=== PATIENT | male | born 1985 | race Two or more races ===

== ENCOUNTER 2018-10-11 17:19 | Inpatient (IN) | payer OTHER ==
[2018-10-11 19:07] VITALS: BMI 20.5
--- NOTE | 2018-10-11 21:45 | HP ---
CIWA Score Nausea/Vomitin-No Nausea/No Vomiting Muscle Tremors: None Anxiety: 0-No Anxiety, at Ease Agitation: 0-Normal Activity Paroxysmal Sweats: No Perspiration Orientation: 2-Disoriented Date<2 days Tacttile Disturbances: 2-Mild Itch/Numbness/Burn Auditory Disturbances: 0-None Visual Disturbances: 3-Moderate Sensitivity Headache: 0-None Present CIWA-Ar Total Score: 7 - Admission Criteria OASAS Guidelines: Admission for Medically Managed Detox: Requires at least one of the followin. CIWA greater than 12 2. Seizures within the past 24 hours 3. Delirium tremens within the past 24 hours 4. Hallucinations within the past 24 hours 5. Acute intervention needed for co occurring medical disorder 6. Acute intervention needed for co occurring psychiatric disorder 7. Severe withdrawal that cannot be handled at a lower level of care (continued vomiting, continued diarrhea, abnormal vital signs) requiring intravenous medication and/or fluids 8. Patient presents the following: Acute intervention needed for co-occurring med or psych disorder Admission Criteria Met: Admission criteria met Admission ROS [facility] Chief Complaint: seeking detox for alcoholism Allergies/Adverse Reactions: Allergies Allergy/AdvReac Type Severity Reaction Status Date / Time shellfish derived Allergy Verified 10/11/18 18:56 History of Present Illness: 33 y.o. male with alcoholism here for detox. client presents with intoxication and some withdrawal sx's. he is referred by his sro. this is his first admission here. states this is his first time inpatient. 2 years clean time reported, relapsing 1 year ago. denies hx/o seizures, + black outs. domiciled, unemployed, denies pmhx- asthma, hiv psych- bipolar- non complaint with meds. last taken 2 weeks ago Exam Limitations: Intoxication - Ebola screening Have you traveled outside of the country in the last 21 days: No (N) Have you had contact with anyone from an Ebola affected area: No Do you have a fever: No - Review of Systems Constitutional: Changes in sleep EENT: reports: No Symptoms Reported Respiratory: reports: Shortness of Breath (intermittent), Other (hx/o asthma) Cardiac: reports: No Symptoms Reported GI: reports: Poor Fluid Intake : reports: No Symptoms Reported Musculoskeletal: reports: No Symptoms Reported Integumentary: reports: Rash (eczema) Neuro: reports: No Symptoms reported Endocrine: reports: No Symptoms Reported Hematology: reports: Anemia Psychiatric: reports: Agitated (irritable), Depressed (denies si) Other Systems: Reviewed and Negative Patient History - Patient Medical History Hx Anemia: Yes Hx Asthma: Yes Hx Chronic Obstructive Pulmonary Disease (COPD): No Hx Cancer: No Hx Cardiac Disorders: No Hx Congestive Heart Failure: No Hx Hypertension: No Hx Hypercholesterolemia: No Hx Pacemaker: No HX Cerebrovascular Accident: No Hx Seizures: No Hx Dementia: No Hx Diabetes: No Hx Gastrointestinal Disorders: No Hx Liver Disease: No Hx Genitourinary Disorders: No Hx Sexually Transmitted Disorders: No Hx Renal Disease (ESRD): No Hx Thyroid Disease: No Hx Human Immunodeficiency Virus (HIV): Yes ([id number]) Hx Hepatitis C: No Hx Depression: No Hx Suicide Attempt: No Hx Bipolar Disorder: Yes Hx Schizophrenia: No Other Medical History: denies - Patient Surgical History Past Surgical History: Yes Other Surgical History: r testicle, oral sx Anesthesia Reaction: No - PPD History Previous Implant?: Yes Documented Results: Negative w/proof Implanted On Prior R Admission?: No PPD to be Administered?: Yes - Smoking Cessation Smoking history: Current every day smoker Have you smoked in the past 12 months: Yes Aproximately how many cigarettes per day: 6 Cigars Per Day: 0 Hx Chewing Tobacco Use: No Initiated information on smoking cessation: Yes 'Breaking Loose' booklet given: 10/11/18 - Substance & Tx. History Hx Alcohol Use: Yes Substance Use Type: None, Alcohol Hx Substance Use Treatment: No - Substances abused Alcohol Substance route: Oral Frequency: 3-6 times per week Amount used: 1 liter of vodka,2 32oz beers on weekends,fri/sat/sun/mon Age of first use: 16 Date of last use: 10/11/18 Family Disease History - Family Disease History Family History: Denies Admission Physical Exam BHS - Vital Signs Vital Signs: Vital Signs - 24 hr 10/11/18 10/11/18 18:56 19:20 Temperature 98.1 F 98.1 F Pulse Rate 93 H 93 H Respiratory 18 18 Rate Blood Pressure 103/67 103/67 - Physical General Appearance: Yes: Mild Distress, Alcohol on Breath, Intoxicated, Irritable HEENTM: Yes: EOMI, Normocephalic, Normal Voice, JUICE, Pharynx Normal Respiratory: Yes: Chest Non-Tender, Lungs Clear, Normal Breath Sounds, No Respiratory Distress Neck: Yes: No masses,lesions,Nodules, Supple, Trachea in good position Breast: Yes: Breast Exam Deferred Cardiology: Yes: Regular Rhythm, Regular Rate, S1, S2 Abdominal: Yes: Non Tender, Flat, Soft, Increased Bowel Sounds Genitourinary: Yes: Within Normal Limits Back: Yes: Normal Inspection Musculoskeletal: Yes: full range of Motion, Gait Steady Extremities: Yes: Normal Capillary Refill, Normal Range of Motion, Non-Tender Neurological: Yes: Fully Oriented, Alert, Motor Strength 5/5, Depressed Affect Integumentary: Yes: Dry, Warm, Other (dirty unkept feet/heels) Lymphatic: Yes: Within Normal Limits - Diagnostic (1) Asthma Current Visit: Yes Status: Chronic Qualifiers: Asthma persistence: intermittent Asthma complication type: unspecified (2) Bipolar 1 disorder, depressed Current Visit: Yes Status: Chronic (3) Nicotine dependence Current Visit: Yes Status: Chronic Qualifiers: Nicotine product type: cigarettes Substance use status: uncomplicated Qualified Code(s): F17.210 - Nicotine dependence, cigarettes, uncomplicated (4) Alcohol intoxication Current Visit: Yes Status: Acute Qualifiers: Complication of substance-induced condition: uncomplicated Qualified Code(s ): F10.920 - Alcohol use, unspecified with intoxication, uncomplicated (5) Alcohol dependence with uncomplicated withdrawal Current Visit: Yes Status: Acute (6) Eczema Current Visit: Yes Status: Chronic (7) Alcohol consumption binge drinking Current Visit: Yes Status: Acute Cleared for Admission S - Detox or Rehab [facility] Level of Care: Medically Managed Detox Regimen/Protocol: [place] Clae[place] for Rehab Admission: No Breathalyzer - Breathalyzer Breathalyzer: 0.236 Urine Drug Screen - Test Device Lot number: [id number] Expiration date: 07/20/20 - Control Is test valid?: Yes - Results Drug screen NEGATIVE: Yes Inpatient Rehab Admission - Rehab Decision to Admit Inpatient rehab admission?: No
[2018-10-11] MEDS ORDERED: ALBUTEROL SO4 8 GM HFA INHALER IH PRN (21:51)
[2018-10-11] MEDS ORDERED: DICYCLOMINE HCL 10 MG CAPSULE PO PRN (21:52)
[2018-10-11] MEDS ORDERED: METHOCARBAMOL 500 MG TABLET PO PRN (21:52)
[2018-10-11] MEDS ORDERED: guaiFENesin 200 MG/10 ML 10 ML UNIT-DOSE CUPS PO PRN (21:52)
[2018-10-11] MEDS ORDERED: MAG HYDROX/AL HYDROX/SIMETH 30 ML UNIT-DOSE CUP PO PRN (21:52)
[2018-10-11] MEDS ORDERED: MENTHOL/PHENOL 1 EACH UD MM PRN (21:52)
[2018-10-11] MEDS ORDERED: ONDANSETRON *ODT* 4 MG TABLET SL PRN (21:52)
[2018-10-11] MEDS ORDERED: BISMUTH SUBSALICYLATE 524 MG/30 ML UD PO PRN (21:52)
[2018-10-11] MEDS ORDERED: MAGNESIUM CITRATE 300 ML BOTTLE PO PRN (21:52)
[2018-10-11] MEDS ORDERED: IBUPROFEN 400 MG TABLET (FP) PO PRN (21:52)
[2018-10-11] MEDS ORDERED: ACETAMINOPHEN 325 MG TABLET (FP) PO PRN ×2 (21:52)
[2018-10-11] MEDS ORDERED: hydrOXYzine PAMOATE 25 MG CAPSULE (FP) PO PRN (21:52)
[2018-10-11] MEDS ORDERED: MAGNESIUM HYDROX 2400MG/30ML ORAL SUSPENSION 30 ML CUP PO PRN (21:52)
[2018-10-11] MEDS ORDERED: P-EPHED 60MG/TRIPROLIDI 2.5MG TABLET PO PRN (21:52)
[2018-10-11] MEDS ORDERED: chlordiazePOXIDE HCL 10 MG CAPSULE PO PRN (21:52)
[2018-10-11] MEDS: THIAMINE HCL 100 MG TABLET (FP) PO SCH (23:38)
[2018-10-11] MEDS: chlordiazePOXIDE HCL 25 MG CAPSULE PO SCH (23:38)
[2018-10-12] MEDS: NICOTINE POLACRILEX 2 MG GUM BUC PRN ×6 (04:26→22:14)
[2018-10-12] MEDS: chlordiazePOXIDE HCL 25 MG CAPSULE PO SCH ×3 (05:05→22:11)
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
--- NOTE | 2018-10-12 10:02 | PN ---
BHS CIWA - CIWA Score Nausea/Vomitin Muscle Tremors: 2 Anxiety: 2 Agitation: 2 Paroxysmal Sweats: 1-Minimal Palms Moist Orientation: 0-Oriented Tacttile Disturbances: 1-Very Mild Itch/Numbness Auditory Disturbances: 1-Very Mild Visual Disturbances: 0-None Headache: 2-Mild CIWA-Ar Total Score: 13 BHS Progress Note (SOAP) Subjective: alert,irritable,anxious,interrupted sleep,tremor Objective: 10/12/18 10:01 Vital Signs Temperature 98.2 F 10/12/18 09:44 Pulse Rate 68 10/12/18 09:44 Respiratory Rate 18 10/12/18 09:44 Blood Pressure 130/86 10/12/18 09:44 O2 Sat by Pulse Oximetry (%) 10/12/18 10:02 labs pending Assessment: 10/12/18 10:02 withdrawal symptom Plan: continue detox,librium regimen
[2018-10-12] MEDS: ABACAVIR/DOLUTEGRAVIR/LAMIVUDI (TRIUMEQ) TABLET -NF PO SCH (10:14)
[2018-10-12] MEDS: SERTRALINE HCL 50 MG TABLET (FP) PO SCH (10:14)
[2018-10-12] MEDS: PRENATAL VITAMINS W/ FOLIC ACID TABLET (FP) PO SCH (10:14)
[2018-10-12] MEDS: NICOTINE 14 MG/24 HOURS TOPICAL PATCH TD SCH (10:14)
[2018-10-12 12:02] LABS: ALBUMIN 3.5 g/dl (3.4-5.0); BILIRUBIN,TOTAL 0.3 mg/dL (0.2-1); BLOOD UREA NITROGEN 7.8 mg/dL (7-18); CALCIUM 8.4 mg/dL (8.5-10.1); CREATININE 0.7 mg/dL (0.55-1.3); POTASSIUM 3.4 mmol/L (3.5-5.1); TOT PROT 7.4 g/dl (6.4-8.2)
[2018-10-12 12:21] LABS: HEMATOCRIT 36.3 % (35.4-49); HEMOGLOBIN 12.2 GM/dL (11.7-16.9); MCH 33.7 pg (25.7-33.7); MCHC 33.7 g/dl (32.0-35.9); MEAN PLT VOLUME 9.4 fl (7.5-11.1); PLATELET COUNT 150 K/MM3 (134-434); RBC 3.63 M/mm3 (4.00-5.60); RDW 16.2 % (11.9-15.9); WHITE BLOOD COUNT 4.6 K/mm3 (4.0-10.0)
--- NOTE | 2018-10-12 13:43 | EKG ---
Test Reason : Blood Pressure : / mmHG Vent. Rate : 078 BPM Atrial Rate : 078 BPM P-R Int : 128 ms QRS Dur : 088 ms QT Int : 388 ms P-R-T Axes : 063 054 061 degrees QTc Int : 442 ms NORMAL SINUS RHYTHM NORMAL ECG NO PREVIOUS ECGS AVAILABLE Confirmed by Juan Luis Love MD ([id number]) on 10/12/2018 1:42:32 PM Referred By: Confirmed By:Juan Luis Love MD
[2018-10-12 14:54] LABS: PH,URINE 5.5 (5.0-8.0); URINE APPEARANCE CLEAR; URINE BILIRUBIN NEGATIVE (NEGATIVE); URINE COLOR DK YELLOW; URINE GLUCOSE (UA) NEGATIVE (NEGATIVE); URINE KETONE TRACE (NEGATIVE); URINE LEUK ESTERASE NEGATIVE (NEGATIVE); URINE NITRITE NEGATIVE (NEGATIVE); URINE PROTEIN TRACE (NEGATIVE)
[2018-10-12] MEDS: THIAMINE HCL 100 MG TABLET (FP) PO SCH (22:11)
[2018-10-12] MEDS: MELATONIN 5 MG TABLETS PO PRN (23:13)
[2018-10-13] MEDS: chlordiazePOXIDE 5 MG CAPSULE PO SCH ×3 (05:46→21:32)
[2018-10-13] MEDS: NICOTINE POLACRILEX 2 MG GUM BUC PRN ×5 (05:51→23:32)
[2018-10-13] MEDS: PRENATAL VITAMINS W/ FOLIC ACID TABLET (FP) PO SCH (10:01)
[2018-10-13] MEDS: SERTRALINE HCL 50 MG TABLET (FP) PO SCH (10:01)
[2018-10-13] MEDS: SULFAMETHOXAZOLE/TRIMETHOPRIM 800MG/160MG D.S. TABLET PO SCH (10:01)
[2018-10-13] MEDS: ABACAVIR/DOLUTEGRAVIR/LAMIVUDI (TRIUMEQ) TABLET -NF PO SCH (10:01)
[2018-10-13] MEDS: NICOTINE 14 MG/24 HOURS TOPICAL PATCH TD SCH (10:02)
[2018-10-13] MEDS ORDERED: POTASSIUM CHLORIDE TABS 20 MEQ TABLET.ER (FP) PO ONE (14:00)
--- NOTE | 2018-10-13 16:30 | PN ---
S CIWA - CIWA Score Nausea/Vomitin-Mild Nausea/No Vomiting Muscle Tremors: 2 Anxiety: 3 Agitation: 2 Paroxysmal Sweats: 2 Orientation: 0-Oriented Tacttile Disturbances: 0-None Auditory Disturbances: 0-None Visual Disturbances: 0-None Headache: 2-Mild CIWA-Ar Total Score: 12 BHS Progress Note (SOAP) Subjective: pt states he has a court date on Thursday and would like to leave early. O: Vital Signs - 24 hr 10/12/18 10/12/18 10/12/18 16:30 17:00 17:30 Temperature Pulse Rate 74 78 66 Respiratory 20 20 20 Rate Blood Pressure 10/12/18 10/12/18 10/12/18 17:54 18:00 18:30 Temperature 98.2 F Pulse Rate 68 69 70 Respiratory 20 20 20 Rate Blood Pressure 128/89 10/12/18 10/12/18 10/12/18 19:00 19:30 20:00 Temperature Pulse Rate 78 69 74 Respiratory 20 18 18 Rate Blood Pressure 10/12/18 10/12/18 10/12/18 20:24 20:30 21:00 Temperature 98.1 F Pulse Rate 70 70 58 L Respiratory 18 18 18 Rate Blood Pressure 123/80 10/12/18 10/12/18 10/12/18 21:30 22:00 22:30 Temperature Pulse Rate 64 69 72 Respiratory 18 18 18 Rate Blood Pressure 10/12/18 10/12/18 10/13/18 23:00 23:30 00:30 Temperature Pulse Rate 70 78 Respiratory 18 18 18 Rate Blood Pressure 10/13/18 10/13/18 10/13/18 03:30 06:21 09:16 Temperature 97.7 F 97.5 F L Pulse Rate 66 63 Respiratory 18 18 17 Rate Blood Pressure 135/91 110/65 10/13/18 13:40 Temperature 100.6 F H Pulse Rate 68 Respiratory 18 Rate Blood Pressure 127/87 Laboratory Tests 10/12/18 10/12/18 10/12/18 07:00 07:00 07:00 WBC 4.6 RBC 3.63 L Hgb 12.2 Hct 36.3 MCV 100.0 H MCH 33.7 MCHC 33.7 RDW 16.2 H Plt Count 150 MPV 9.4 Sodium 136 Potassium 3.4 L Chloride 98 Carbon Dioxide 32 Anion Gap 7 L BUN 7.8 Creatinine 0.7 Est GFR (CKD-EPI)AfAm 144.72 Est GFR (CKD-EPI)NonAf 124.87 Random Glucose 109 H Calcium 8.4 L Total Bilirubin 0.3 AST 45 H ALT 28 Alkaline Phosphatase 58 Total Protein 7.4 Albumin 3.5 Urine Color Urine Appearance Urine pH Ur Specific [place] Urine Protein Urine Glucose (UA) Urine Ketones Urine Blood Urine Nitrite Urine Bilirubin Urine Urobilinogen Ur Leukocyte Esterase RPR Titer Nonreactive 10/12/18 09:20 WBC RBC Hgb Hct MCV MCH MCHC RDW Plt Count MPV Sodium Potassium Chloride Carbon Dioxide Anion Gap BUN Creatinine Est GFR (CKD-EPI)AfAm Est GFR (CKD-EPI)NonAf Random Glucose Calcium Total Bilirubin AST ALT Alkaline Phosphatase Total Protein Albumin Urine Color Dk yellow Urine Appearance Clear Urine pH 5.5 Ur Specific [place] 1.033 Urine Protein Trace Urine Glucose (UA) Negative Urine Ketones Trace H Urine Blood Negative Urine Nitrite Negative Urine Bilirubin Negative Urine Urobilinogen 1.0 Ur Leukocyte Esterase Negative RPR Titer low potassium mild fever, without sx a/p: continue detox protocol- potassium repletion follow temp- no other Sx at the present moment
[2018-10-13] MEDS: THIAMINE HCL 100 MG TABLET (FP) PO SCH (21:33)
[2018-10-13] MEDS: MELATONIN 5 MG TABLETS PO PRN (23:32)
[2018-10-14] MEDS ORDERED: chlordiazePOXIDE HCL 10 MG CAPSULE PO PRN
[2018-10-14] MEDS ORDERED: chlordiazePOXIDE HCL 10 MG CAPSULE PO SCH (05:00)
[2018-10-14] MEDS: NICOTINE POLACRILEX 2 MG GUM BUC PRN ×3 (05:09→10:22)
[2018-10-14 09:24] VITALS: BP 111/82; PULSE 82; TEMP 98.1
[2018-10-14] MEDS ORDERED: POTASSIUM CHLORIDE TABS 20 MEQ TABLET.ER (FP) PO SCH (10:00)
[2018-10-14] MEDS: NICOTINE 14 MG/24 HOURS TOPICAL PATCH TD SCH (10:19)
[2018-10-14] MEDS: SERTRALINE HCL 50 MG TABLET (FP) PO SCH (10:19)
[2018-10-14] MEDS: SULFAMETHOXAZOLE/TRIMETHOPRIM 800MG/160MG D.S. TABLET PO SCH (10:19)
[2018-10-14] MEDS: PRENATAL VITAMINS W/ FOLIC ACID TABLET (FP) PO SCH (10:20)
[2018-10-14] MEDS: ABACAVIR/DOLUTEGRAVIR/LAMIVUDI (TRIUMEQ) TABLET -NF PO SCH (10:20)
--- NOTE | 2018-10-14 12:25 | PN ---
S CIWA - CIWA Score Nausea/Vomitin-No Nausea/No Vomiting Muscle Tremors: 1-None Visible, but [place] Anxiety: 1-Mildly Anxious Agitation: 1-Slight > Activity Paroxysmal Sweats: No Perspiration Orientation: 0-Oriented Tacttile Disturbances: 0-None Auditory Disturbances: 0-None Visual Disturbances: 0-None Headache: 1-Very Mild CIWA-Ar Total Score: 4 BHS Progress Note (SOAP) Subjective: alert,no complaint,feeling well Objective: 10/14/18 12:23 Vital Signs Temperature 98.1 F 10/14/18 09:24 Pulse Rate 82 10/14/18 09:24 Respiratory Rate 18 10/14/18 09:24 Blood Pressure 111/82 10/14/18 09:24 O2 Sat by Pulse Oximetry (%) Assessment: 10/14/18 12:23 no withdrawal symptom Plan: stable for discharge today,follow up with after care program as arrangement
--- NOTE | 2018-10-14 12:29 | DS ---
[facility] Detox Discharge Summary Admission Date: 10/11/18 Discharge Date: 10/14/18 - History Present History: Alcohol Dependence Additional Comments: stable for discharge today,follow up with after care program as arrangement and medical provider for medical problem Pertinent Past History: asthma eczema hiv bipolar disorder - Physical Exam Results Vital Signs: Vital Signs Temperature 98.1 F 10/14/18 09:24 Pulse Rate 82 10/14/18 09:24 Respiratory Rate 18 10/14/18 09:24 Blood Pressure 111/82 10/14/18 09:24 O2 Sat by Pulse Oximetry (%) Pertinent Admission Physical Exam Findings: withdrawal sign and symptom Laboratory Last Values WBC 4.6 K/mm3 (4.0-10.0) 10/12/18 07:00 RBC 3.63 M/mm3 (4.00-5.60) L 10/12/18 07:00 Hgb 12.2 GM/dL (11.7-16.9) 10/12/18 07:00 Hct 36.3 % (35.4-49) 10/12/18 07:00 MCV 100.0 fl (80-96) H 10/12/18 07:00 MCH 33.7 pg (25.7-33.7) 10/12/18 07:00 MCHC 33.7 g/dl (32.0-35.9) 10/12/18 07:00 RDW 16.2 % (11.9-15.9) H 10/12/18 07:00 Plt Count 150 K/MM3 (134-434) 10/12/18 07:00 MPV 9.4 fl (7.5-11.1) 10/12/18 07:00 Sodium 136 mmol/L (136-145) 10/12/18 07:00 Potassium 3.4 mmol/L (3.5-5.1) L 10/12/18 07:00 Chloride 98 mmol/L (98-107) 10/12/18 07:00 Carbon Dioxide 32 mmol/L (21-32) 10/12/18 07:00 Anion Gap 7 MMOL/L (8-16) L 10/12/18 07:00 BUN 7.8 mg/dL (7-18) 10/12/18 07:00 Creatinine 0.7 mg/dL (0.55-1.3) 10/12/18 07:00 Est GFR (CKD-EPI)AfAm 144.72 10/12/18 07:00 Est GFR (CKD-EPI)NonAf 124.87 10/12/18 07:00 Random Glucose 109 mg/dL (74-106) H 10/12/18 07:00 Calcium 8.4 mg/dL (8.5-10.1) L 10/12/18 07:00 Total Bilirubin 0.3 mg/dL (0.2-1) 10/12/18 07:00 AST 45 U/L (15-37) H 10/12/18 07:00 ALT 28 U/L (13-61) 10/12/18 07:00 Alkaline Phosphatase 58 U/L (45-117) 10/12/18 07:00 Total Protein 7.4 g/dl (6.4-8.2) 10/12/18 07:00 Albumin 3.5 g/dl (3.4-5.0) 10/12/18 07:00 Urine Color Dk yellow 10/12/18 09:20 Urine Appearance Clear 10/12/18 09:20 Urine pH 5.5 (5.0-8.0) 10/12/18 09:20 Ur Specific [place] 1.033 (1.010-1.035) 10/12/18 09:20 Urine Protein Trace (NEGATIVE) 10/12/18 09:20 Urine Glucose (UA) Negative (NEGATIVE) 10/12/18 09:20 Urine Ketones Trace (NEGATIVE) H 10/12/18 09:20 Urine Blood Negative (NEGATIVE) 10/12/18 09:20 Urine Nitrite Negative (NEGATIVE) 10/12/18 09:20 Urine Bilirubin Negative (NEGATIVE) 10/12/18 09:20 Urine Urobilinogen 1.0 mg/dL (0.2-1.0) 10/12/18 09:20 Ur Leukocyte Esterase Negative (NEGATIVE) 10/12/18 09:20 RPR Titer Nonreactive (NONREACTIVE) 10/12/18 07:00 - Treatment Hospital Course: Detox Protocol Followed, Detoxed Safely, Responded well, Discharged Condition Good Patient has Accepted a Rehab Referral to: declined - Medication Discharge Medications: Ambulatory Orders Abacavir/Dolutegravir/Lamivudi [Triumeq Tablet] 1 each PO DAILY 10/11/18 Albuterol Sulfate Inhaler - [Ventolin Hfa Inhaler -] 1 - 2 inh PO QID PRN Sulfamethoxazole/Trimethoprim [Bactrim Ds -] 1 tab PO DAILY 10/11/18 traZODone HCL [Trazodone HCl] 50 mg PO HS 10/11/18 - Diagnosis (1) Alcohol dependence with uncomplicated withdrawal Current Visit: Yes Status: Acute (2) Asthma Current Visit: Yes Status: Chronic Qualifiers: Asthma persistence: intermittent Asthma complication type: unspecified (3) Bipolar 1 disorder, depressed Current Visit: Yes Status: Chronic (4) Eczema Current Visit: Yes Status: Chronic (5) HIV (human immunodeficiency virus infection) Current Visit: Yes Status: Chronic (6) Nicotine dependence Current Visit: Yes Status: Chronic Qualifiers: Nicotine product type: cigarettes Substance use status: uncomplicated Qualified Code(s): F17.210 - Nicotine dependence, cigarettes, uncomplicated (7) Bipolar disorder Current Visit: Yes Status: Ruled-out - AMA Did Patient Leave Against Medical Advice: No
[2018-10-15] MEDS ORDERED: chlordiazePOXIDE HCL 10 MG CAPSULE PO ONE (05:00)
== END 2018-10-14 12:48 | disposition home or self-care (01) | DRG 775 ==
LOC: YASAS 17:19 → Y6N 22:31
PROVIDERS: ADMIT Surgery; ATTEND Surgery
PROC: HZ2ZZZZ Detoxification Services for Substance Abuse Treatment (ICD-10-PCS; principal; 2018-10-11)
DX: F10.230 Alcohol dependence with withdrawal, uncomplicated (principal); F10.220 Alcohol dependence with intoxication, uncomplicated; F10.24 Alcohol dependence with alcohol-induced mood disorder; F10.282 Alcohol dependence with alcohol-induced sleep disorder; F17.210 Nicotine dependence, cigarettes, uncomplicated; F31.9 Bipolar disorder, unspecified; F39 Unspecified mood [affective] disorder; J45.20 Mild intermittent asthma, uncomplicated; L30.9 Dermatitis, unspecified; Z21 Asymptomatic human immunodeficiency virus [HIV] infection status; E87.6 Hypokalemia; D64.9 Anemia, unspecified; Z91.14 Patient's other noncompliance with medication regimen; Z91.013 Allergy to seafood; Z59.0 Homelessness
CPT/HCPCS: 36415; 80053; 81003; 85027; 86480; 86593; 93005; 93010